=== PATIENT | female | born 2000 | race Two or more races ===

== ENCOUNTER 2019-12-30 09:59 | Outpatient (CLI) | payer OTHER | END 2019-12-30 10:24 | disposition home or self-care (01) | LOC: MRI 09:59 | PROVIDERS: ATTEND Internal Medicine Endocrinology, Diabetes & Metabolism | DX: E22.1 Hyperprolactinemia (principal) ==

== ENCOUNTER 2020-05-15 11:57 | Outpatient (CLI) | payer OTHER | END 2020-05-15 12:13 | disposition home or self-care (01) | LOC: MAMO-SONO 11:57 | PROVIDERS: ATTEND Surgery Plastic and Reconstructive Surgery | DX: R92.2 Inconclusive mammogram (principal) ==

== ENCOUNTER 2020-10-31 22:45 | Emergency (ER) | payer OTHER ==
[~2020-10-31] VITALS: Ht 152.4 cm; Wt 63.5 kg
[2020-10-31] MEDS ORDERED: ANTICONCEPTIVO (22:57)
[2020-10-31] MEDS ORDERED: CABERGOLINE0.5 MG (22:58)
== END 2020-11-01 10:57 | disposition home or self-care (01) ==
LOC: EMR PED 22:45
DX: N93.8 Other specified abnormal uterine and vaginal bleeding (principal)

== ENCOUNTER 2025-03-10 18:59 | Emergency (ER) | payer OTHER ==
[~2025-03-10] VITALS: Ht 152.4 cm; Wt 66.7 kg
[~2025-03-10 18:59] MED LIST: ANTICONCEPTIVO; CABERGOLINE0.5 MG
[2025-03-10 21:26] LABS: URINE APPEARANCE Clear; URINE BILIRRUBIN Negative (NEGATIVE); URINE BLOOD Negative; URINE COLOR Yellow; URINE GLUCOSE Negative (NEGATIVE); URINE KETONE Negative (NEGATIVE); URINE LEUKOCYTE Negative; URINE NITRATE Negative; URINE PROTEIN Negative (NEGATIVE); URINE UROBILINOGEN 0.2 E.U./dl
[2025-03-10 21:27] LABS: URINE BACTERIA 37.2 uL (0.0-1933); URINE EPITHELIAL CELLS 30.3 uL (0.0-38.8); URINE RBC 5.5 uL (0.0-20.8); URINE WBC 6.1 uL (0.0-23.2)
[2025-03-10 21:35] LABS: URINE CAST 0.00 uL (0.0-1.40)
[2025-03-10 21:45] LABS: ALT/SGPT 32 U/L (12-78); AST/SGOT 13 U/L (15-37); BILIRUBIN TOTAL 0.24 mg/dL (0.3-1.2); BUN CREA RATIO 20 (7.0-25.0); CREATININE SERUM 0.94 mg/dL (0.55-1.02); GFR 72.55; GLOBULINA 3.4 G/DL (2.4-3.5); GLUCOSE FASTING 89 mg/dL (65-100); OSMOLALITY SERUM 287 MOSM/KG (275-295)
[2025-03-10] MEDS ORDERED: ORPHENADRINE CITRATE 30 MG/ML AMPUL IM STA (22:21)
[2025-03-10] MEDS ORDERED: KETOROLAC TROMETHAMINE 60 MG VIAL IM STA (22:22)
[2025-03-10] MEDS ORDERED: KETOROLAC TROMETHAMINE 60 MG VIAL IM ONE (22:42)
[2025-03-10] MEDS ORDERED: ORPHENADRINE CITRATE 30 MG/ML AMPUL ONE (22:42)
[2025-03-10 23:35] LABS: BASO % 0.3 % (0.1-1.2); EOS # 0.11 (0.04-0.54); EOS % 0.6 % (0.7-7.0); LYMPH # 8.11 (1.18-3.74); LYMPH % 44.9 % (19.3-53.1); MEAN PLATELET VOLUME 11.60 fl (9.4-12.4); MONO # 0.98 (0.24-0.82); MONO % 5.4 % (4.7-12.5); NEUT # 8.39 (1.56-6.13); NEUT % 46.5 % (34.0-71.1); RED CELL DISTRIBUTION WIDTH 12.3 % (11.6-14.4)
[2025-03-10 23:45] LABS: ERYTHROCYTE SEDIMENTATION RATE < 1 mm/hr (0-20)
== END 2025-03-11 01:07 | disposition home or self-care (01) ==
LOC: ER 19:00
PROVIDERS: Physician Assistant Medical
DX: M54.50 Low back pain, unspecified (principal); N39.0 Urinary tract infection, site not specified